=== PATIENT | male | born 1990 | race Caucasian/White ===

== ENCOUNTER 2022-08-13 23:47 | Emergency (ER) | payer OTHER ==
[~2022-08-13] VITALS: Ht 162.6 cm; Wt 104.3 kg
[2022-08-14 00:32] VITALS: BP 150/105; PULSE 88; RESP 16; TEMP 97.4; O2SAT 100
--- NOTE | 2022-08-14 00:37 | NUR ---
TO LOBBY FOLLOWING TRIAGE
--- NOTE | 2022-08-14 02:50 | NUR ---
Patient ambulated to bed 9.
[2022-08-14 03:15] VITALS: BP 153/105; PULSE 103; RESP 18; TEMP 97.4; O2SAT 96
--- NOTE | 2022-08-14 03:15 | NUR ---
Patient is a 32/M who came in due to 2 days history of right groin abscess associated with bilateral throbbing testicular pain, 9/10, fever and chills. Patient denies trauma/injury to said area. Patient took Tylenol at 2230. PMHx: HTN, DM NKA
--- NOTE | 2022-08-14 03:38 | NUR ---
Dr. Handley examining patient.
--- NOTE | 2022-08-14 05:13 | NUR ---
Dr. Handley at bedside for I&D.
[2022-08-14] MEDS ORDERED: SULF-59 PO (05:27)
[2022-08-14] MEDS ORDERED: CEPH-588 PO (05:27)
--- NOTE | 2022-08-14 06:00 | NUR ---
Patient discharged. Written and verbal after care instructions given and explained. Patient alert, oriented and verbalized understanding of instructions. Ambulatory with steady gait. All questions addressed prior to discharge. ID band removed. Patient advised to follow up with PMD. Rx of Keflex and Bactrim Ds given. Patient educated on indication of medication including possible reaction and side effects. Opportunity to ask questions provided and answered.
== END 2022-08-14 06:00 | disposition home or self-care (01) ==
LOC: MED 23:47
DX: L02.214 Cutaneous abscess of groin (principal)
CPT/HCPCS: 99284